=== PATIENT | male | born 2000 | race Caucasian/White ===

== ENCOUNTER 2021-04-06 17:36 | Emergency (ER) | payer OTHER ==
[2021-04-06 17:44] VITALS: BP 166/94; PULSE 90; TEMP 98; BMI 37.3
[2021-04-06] MEDS ORDERED: IBUPROFEN 600 MG TABLET (FP) PO ONE ×2 (19:53→19:54)
== END 2021-04-07 00:26 | disposition home or self-care (01) ==
LOC: JERFT 17:36
DX: M25.562 Pain in left knee (principal)
CPT/HCPCS: 73562-TC-LT-FY; 99283-25